=== PATIENT | female | born 1990 | race Caucasian/White ===

== ENCOUNTER 2017-07-22 22:43 | Outpatient (CLI) | payer BC ==
[~2017-07-22] VITALS: Ht 163.8 cm; Wt 85.5 kg
[2017-07-23] MEDS ORDERED: OXYTOCIN 30U/ 0.9% NaCL 500ML 500 ML ONE (02:29)
[2017-08-02] MEDS ORDERED: DOCU-131 PO (09:49)
[2017-08-02] MEDS ORDERED: IBUP-1222 PO (09:50)
[2017-08-02] MEDS ORDERED: OXYC-302 PO (09:50)
== END 2017-07-22 23:49 | disposition home or self-care (01) ==
LOC: LDOP 22:43
PROVIDERS: ATTEND Obstetrics & Gynecology
DX: O26.893 Other specified pregnancy related conditions, third trimester (principal); R42 Dizziness and giddiness; R06.02 Shortness of breath; R10.9 Unspecified abdominal pain; Z3A.36 36 weeks gestation of pregnancy
CPT/HCPCS: 59025; 99211; G0463

== ENCOUNTER 2020-04-01 11:15 | Day surgery (SDC) | payer BC ==
[~2020-04-01] VITALS: Ht 162.6 cm; Wt 76.7 kg
[~2020-04-01 11:15] MED LIST: DOCU-131 PO; IBUP-1222 PO; OXYC-302 PO
[2020-04-01] MEDS ORDERED: LACTATED RINGERS 1,000 ML IV SCH (11:53)
[2020-04-01 11:57] LABS: HCG UR SG 1.024 (1.003-1.030)
[2020-04-01] MEDS ORDERED: CHLORHEXIDINE 15 ML UDC MM ONE (12:00)
[2020-04-01 12:07] VITALS: BP 125/76
[2020-04-01] MEDS ORDERED: LEVO100T5 PO (12:20)
[2020-04-01] MEDS ORDERED: METR500T PO (12:20)
[2020-04-01] MEDS ORDERED: LYSI500T25 PO (12:20)
[2020-04-01] MEDS ORDERED: GABAPENTIN 300 MG CAPSULE PO ONE (12:30)
[2020-04-01] MEDS ORDERED: ACETAMINOPHEN 500 MG TABLET PO ONE (12:30)
[2020-04-01] MEDS ORDERED: FENTANYL PF 100 MCG/2ML ONE ×2 (12:40→14:26)
[2020-04-01] MEDS ORDERED: PROPOFOL 10 MG/ML, 20ML ONE ×2 (12:40)
[2020-04-01] MEDS ORDERED: MIDAZOLAM 1 MG/ML, 2ML ONE (12:40)
[2020-04-01] MEDS ORDERED: KETOROLAC 30 MG/1 ML ONE ×2 (12:43→14:48)
[2020-04-01] MEDS ORDERED: DEXAMETHASONE 4 MG/ML, 1ML ONE ×2 (12:43)
[2020-04-01] MEDS ORDERED: ONDANSETRON 2MG/ML, 2ML ONE (12:43)
[2020-04-01] MEDS ORDERED: FAMOTIDINE 20 MG TABLET ONE (12:59)
[2020-04-01] MEDS ORDERED: OXYcodone 5 MG/5 ML ORAL.SOL UDC PO PRN (13:00)
[2020-04-01] MEDS ORDERED: PROMETHAZINE 25 MG/ML, 1ML IVPush PRN (13:00)
[2020-04-01] MEDS ORDERED: CEFAZOLIN 1,000 MG ONE (13:08)
[2020-04-01] MEDS ORDERED: BUPIVACAINE/PF-EPI 0.25% 1:200K ONE (13:23)
[2020-04-01] MEDS: MEPERIDINE/PF 25MG/0.5ML IVPush PRN ×2 (14:20→14:35)
[2020-04-01] MEDS ORDERED: OXYcodone 5 MG/5 ML ORAL.SOL UDC ONE (14:26)
[2020-04-01] MEDS ORDERED: MEPERIDINE/PF 25MG/ML,1ML ONE (14:29)
[2020-04-01] MEDS ORDERED: KETOROLAC 30 MG/1 ML IVPush PRN (15:00)
== END 2020-04-01 16:45 | disposition home or self-care (01) ==
LOC: OUT 11:15
PROVIDERS: ATTEND Obstetrics & Gynecology
DX: N92.0 Excessive and frequent menstruation with regular cycle (principal); G43.909 Migraine, unspecified, not intractable, without status migrainosus; F41.9 Anxiety disorder, unspecified; F32.9 Major depressive disorder, single episode, unspecified; K21.9 Gastro-esophageal reflux disease without esophagitis; Z87.891 Personal history of nicotine dependence; Z79.899 Other long term (current) drug therapy; Z98.890 Other specified postprocedural states; Z72.89 Other problems related to lifestyle; Z82.49 Family history of ischemic heart disease and other diseases of the circulatory system; Z83.3 Family history of diabetes mellitus
CPT/HCPCS: 58563; 81025; J0690; J1100; J1885; J2175; J2250; J2405; J2704; J7120; J3010